=== PATIENT | male | born 1960 | race Caucasian/White ===

== ENCOUNTER 2021-04-04 16:22 | Inpatient (IN) ==
[2021-04-04] MEDS ORDERED: NITROGLYCERIN SL 0.4 MG TABLET SL ONE ×2 (16:27→16:31)
[2021-04-04] MEDS ORDERED: HEPARIN 5,000 UNIT/1 ML VIAL ONE ×2 (16:34→17:21)
[2021-04-04] MEDS ORDERED: HEPARIN 5,000 UNIT/1 ML VIAL IV ONE (16:34)
[2021-04-04] MEDS ORDERED: ASPIRIN 325 MG TABLET PO STA (16:34)
[2021-04-04 16:45] LABS: Basophils % 0.4 % (0.0-0.8); Eosinophils # 0.2 10*3/uL (0.0-0.87); Eosinophils % 2.1 % (0.00-10.9); Hematocrit 44.7 VOL% (42.0-52.0); Hemoglobin 15.7 GM/DL (14.0-18.0); Immature Granulocytes % 0.3 %; Immature Granulocytes Absolute 0.03 #; Lymphocytes # 4.5 10*3/uL (1.4-4.0); Lymphocytes % 50.1 % (21.2-54.2); Mean Corpuscular HGB Conc 35.1 GM/DL (32-36); Mean Corpuscular Volume 90.5 FL (87-102); Mean Platelet Volume 9.9 FL (9.6-12.0); Monocytes % 10.3 % (1.7-12.7); Neutrophils % 36.8 % (38.7-73.9); Platelet Count 225 T/CUMM (130-400); Red Blood Count 4.94 MC/CUMM (3.8-5.5); White Blood Count 8.9 T/CUMM (4-12)
[2021-04-04] MEDS ORDERED: ONDANSETRON 4 MG/2 ML VIAL IV ONE (16:50)
[2021-04-04] MEDS ORDERED: MORPHINE 4 MG/1 ML VIAL IV STA (16:50)
[2021-04-04] MEDS ORDERED: ONDANSETRON 4 MG/2 ML VIAL ONE (16:50)
[2021-04-04] MEDS ORDERED: MORPHINE 4 MG/1 ML VIAL ONE (16:51)
[2021-04-04 17:03] LABS: Alanine Aminotransferase 55 U/L (16-61); Albumin 3.6 G/DL (3.4-5.0); Alkaline Phosphatase 127 U/L (45-117); Aspartate Amino Transferase 63 U/L (0-37); Bilirubin,Total < 0.39 MG/DL (0.2-1.0); Blood Urea Nitrogen 16 MG/DL (7-18); Calcium 9.4 MG/DL (8.5-10.1); Carbon Dioxide 18 MMOL/L (21-32); Estimated Glom Filtration Rate 79 ML/MIN; Glucose 175 MG/DL (74-106); Osmolality,Calculated 283.4 MOS/KG (273-304); Potassium 3.3 MMOL/L (3.5-5.1); Sodium 140 MMOL/L (136-145); Total Protein 7.2 G/DL (6.4-8.2)
[2021-04-04] MEDS ORDERED: LIDOCAINE 1% 20 ML VIAL ONE (17:04)
[2021-04-04] MEDS ORDERED: HYDROmorphone 2 MG/1 ML VIAL ONE (17:05)
[2021-04-04] MEDS ORDERED: MIDAZOLAM 2 MG/2 ML VIAL ONE (17:05)
[2021-04-04] MEDS ORDERED: TIROFIBAN 5,000 MCG/100 ML PREMIX IV ONE (17:25)
[2021-04-04] MEDS ORDERED: TIROFIBAN 5,000 MCG/100 ML PREMIX IV SCH (17:31)
[2021-04-04] MEDS ORDERED: PRASUGREL 10 MG TABLET ONE (17:59)
[2021-04-04] MEDS ORDERED: NITROGLYCERIN SL 0.4 MG TABLET SL PRN (18:12)
[2021-04-04] MEDS ORDERED: POTASSIUM CHLORIDE 20 MEQ TABLET PO STA (18:17)
[2021-04-04 18:54] LABS: Troponin I < 0.015 NG/ML (0.00-0.045)
[2021-04-04] MEDS: ROSUVASTATIN 20 MG TABLET PO SCH (19:08)
[2021-04-04 19:33] LABS: Eosinophils 2 % (0-10); Lymphocytes 49 % (20-55); Segmented Neutrophils 42 % (50-85); Total Cells Counted 100
[2021-04-04 19:34] LABS: Hypochromasia 1+; Platelet Estimate Increased; Reactive Lymphocytes 2+
[2021-04-04] MEDS: carvediloL 3.125 MG TABLET PO SCH (20:51)
[2021-04-05] MEDS ORDERED: ALPRAZolam 0.25 MG TABLET PO PRN (00:46)
[2021-04-05] MEDS ORDERED: POTASSIUM CHLORIDE 20 MEQ TABLET PO ONE (00:46)
[2021-04-05] MEDS ORDERED: carvediloL 3.125 MG TABLET PO ONE (00:48)
[2021-04-05] MEDS: ZALEPLON 5 MG CAPSULE PO PRN ×2 (01:08→21:03)
[2021-04-05 04:50] LABS: Basophils % 0.3 % (0.0-0.8); Eosinophils # 0.1 10*3/uL (0.0-0.87); Eosinophils % 1.4 % (0.00-10.9); Hemoglobin 14.5 GM/DL (14.0-18.0); Immature Granulocytes % 0.1 %; Immature Granulocytes Absolute 0.01 #; Lymphocytes % 37.2 % (21.2-54.2); Mean Corpuscular HGB Conc 33.7 GM/DL (32-36); Mean Corpuscular Volume 93.7 FL (87-102); Monocytes % 10.8 % (1.7-12.7); Neutrophils % 50.2 % (38.7-73.9); Platelet Count 167 T/CUMM (130-400); Red Blood Count 4.59 MC/CUMM (3.8-5.5); Red Cell Distribution Width 13.4 % (9.3-17.3)
[2021-04-05 05:50] LABS: CKMB % 12.3 %; Calcium 8.4 MG/DL (8.5-10.1); Osmolality,Calculated 278.4 MOS/KG (273-304); Potassium 4.1 MMOL/L (3.5-5.1)
[2021-04-05 05:57] LABS: Troponin I 49.7 NG/ML (0.00-0.045)
[2021-04-05] MEDS: ASPIRIN EC 81 MG TABLET PO SCH (08:27)
[2021-04-05] MEDS: PRASUGREL 10 MG TABLET PO SCH (08:28)
[2021-04-05] MEDS: ROSUVASTATIN 20 MG TABLET PO SCH (08:28)
[2021-04-05] MEDS: carvediloL 3.125 MG TABLET PO SCH ×2 (08:28→21:03)
[2021-04-05] MEDS ORDERED: MAGNESIUM SULF RIDER 2 GM/50 ML PREMIX IV PRN (08:32)
[2021-04-05] MEDS ORDERED: DIAZEPAM 5 MG TABLET PO ONE (08:32)
[2021-04-05] MEDS ORDERED: diphenhydrAMINE CAP 50 MG CAPSULE PO ONE (08:32)
[2021-04-05] MEDS ORDERED: POTASSIUM CHLORIDE RIDER 10 MEQ in PREMIX 1 EACH IV PRN (08:32)
[2021-04-06 04:25] LABS: Basophils % 0.4 % (0.0-0.8); Eosinophils # 0.2 10*3/uL (0.0-0.87); Eosinophils % 2.4 % (0.00-10.9); Hematocrit 44.2 VOL% (42.0-52.0); Hemoglobin 14.8 GM/DL (14.0-18.0); Immature Granulocytes % 0.3 %; Immature Granulocytes Absolute 0.02 #; Lymphocytes # 2.7 10*3/uL (1.4-4.0); Mean Corpuscular HGB Conc 33.5 GM/DL (32-36); Mean Corpuscular Volume 93.8 FL (87-102); Mean Platelet Volume 10.1 FL (9.6-12.0); Monocytes % 9.9 % (1.7-12.7); Platelet Count 168 T/CUMM (130-400); Red Blood Count 4.71 MC/CUMM (3.8-5.5); Red Cell Distribution Width 13.3 % (9.3-17.3); White Blood Count 7.8 T/CUMM (4-12)
[2021-04-06 05:01] LABS: Calcium 8.3 MG/DL (8.5-10.1); Osmolality,Calculated 275.5 MOS/KG (273-304); Potassium 3.8 MMOL/L (3.5-5.1)
[2021-04-06] MEDS ORDERED: DIAZEPAM 5 MG TABLET ONE (07:35)
[2021-04-06] MEDS ORDERED: diphenhydrAMINE CAP 25 MG CAPSULE ONE (07:36)
[2021-04-06] MEDS: ROSUVASTATIN 20 MG TABLET PO SCH ×2 (07:41→08:05)
[2021-04-06] MEDS: carvediloL 3.125 MG TABLET PO SCH ×3 (07:41→22:53)
[2021-04-06] MEDS: PRASUGREL 10 MG TABLET PO SCH ×2 (07:41→08:05)
[2021-04-06] MEDS: ASPIRIN EC 81 MG TABLET PO SCH ×2 (07:41→08:05)
[2021-04-06] MEDS ORDERED: LIDOCAINE 1% 20 ML VIAL ONE (09:33)
[2021-04-06] MEDS ORDERED: HYDROmorphone 2 MG/1 ML VIAL ONE (09:33)
[2021-04-06] MEDS ORDERED: MIDAZOLAM 2 MG/2 ML VIAL ONE (09:33)
[2021-04-06] MEDS ORDERED: VERAPAMIL 5 MG/2 ML VIAL ONE (09:34)
[2021-04-06] MEDS ORDERED: NITROGLYCERIN DRIP 50 MG/250 ML BOTTLE IV ONE (09:34)
[2021-04-06] MEDS ORDERED: ENOXAPARIN 30 MG/0.3 ML SYRINGE ONE (09:54)
[2021-04-06] MEDS ORDERED: ENOXAPARIN 60 MG/0.6 ML SYRINGE ONE (09:54)
[2021-04-06 11:48] LABS: CKMB % 5.5 %; Troponin I 12.8 NG/ML (0.00-0.045)
[2021-04-06] MEDS ORDERED: GABAPENTIN 100 MG CAPSULE PO PRN (15:16)
[2021-04-06] MEDS ORDERED: GABAPENTIN 100 MG CAPSULE PO ONE (15:16)
[2021-04-06 16:35] VITALS: BP 98/67
[2021-04-07 05:22] LABS: Basophils % 0.2 % (0.0-0.8); Eosinophils # 0.2 10*3/uL (0.0-0.87); Eosinophils % 2.7 % (0.00-10.9); Hematocrit 44.4 VOL% (42.0-52.0); Hemoglobin 15.5 GM/DL (14.0-18.0); Immature Granulocytes % 0.2 %; Immature Granulocytes Absolute 0.02 #; Lymphocytes # 2.3 10*3/uL (1.4-4.0); Lymphocytes % 28.5 % (21.2-54.2); Mean Corpuscular HGB Conc 34.9 GM/DL (32-36); Mean Corpuscular Volume 92.9 FL (87-102); Mean Platelet Volume 10.2 FL (9.6-12.0); Monocytes % 9.1 % (1.7-12.7); Neutrophils % 59.3 % (38.7-73.9); Platelet Count 173 T/CUMM (130-400); Red Blood Count 4.78 MC/CUMM (3.8-5.5); Red Cell Distribution Width 13.2 % (9.3-17.3); White Blood Count 8.1 T/CUMM (4-12)
[2021-04-07 05:57] LABS: Calcium 8.6 MG/DL (8.5-10.1); Osmolality,Calculated 279.4 MOS/KG (273-304); Potassium 3.8 MMOL/L (3.5-5.1)
[2021-04-07 06:49] LABS: CKMB % 4.1 %; Calcium 8.6 MG/DL (8.5-10.1); Osmolality,Calculated 278.4 MOS/KG (273-304); Potassium 3.9 MMOL/L (3.5-5.1)
[2021-04-07 06:51] LABS: Troponin I 10.5 NG/ML (0.00-0.045)
[2021-04-07] MEDS: ROSUVASTATIN 20 MG TABLET PO SCH (08:45)
[2021-04-07] MEDS: ASPIRIN EC 81 MG TABLET PO SCH (08:45)
[2021-04-07] MEDS: PRASUGREL 10 MG TABLET PO SCH (08:45)
[2021-04-07] MEDS: carvediloL 3.125 MG TABLET PO SCH (08:45)
== END 2021-04-07 10:14 | disposition home or self-care (01) | DRG 246 ==
LOC: EDBD → EDUNIT# → N.ED 16:22 → N.ICU 17:03 → N.EDINP 17:45 → N.ICU 18:24
PROVIDERS: ADMIT Internal Medicine Cardiovascular Disease; ATTEND Internal Medicine Cardiovascular Disease
PROC: CLCCHCL (ICD-10-PCS; 2021-04-04 17:45)